=== PATIENT | female | born 1985 | race Caucasian/White ===

== ENCOUNTER 2018-07-12 13:14 | Outpatient (CLI) | payer OTHER ==
--- NOTE | 2018-07-12 15:31 | ULT ---
LEFT BREAST ULTRASOUND LIMITED: Date: 07/12/18 HISTORY: 32-year-old female presents with a palpable finding in the left breast at approximately the 2 o'clock position. FINDINGS: Ultrasound evaluation demonstrates no solid or cystic mass. No abnormal finding to account for the pa lpable finding. Prior diagnostic mammogram showed no significant abnormality in this region of the east as well. IMPRESSION: BI-RADS Category 2 - Benign findings. No mammographic or ultrasound finding to account for a palpable finding. If the patient develops any new palpable finding, ultrasound examination at that point in time should be considered. Additionally, follow-up screening mammogram should be considered to be performed betw een age 35-40, depending upon risk factors. POS: OFF
== END 2018-07-12 13:15 | disposition home or self-care (01) ==
LOC: BICMAMMO 13:14
PROVIDERS: ATTEND Clinical Nurse Specialist Medical-Surgical
DX: R92.2 Inconclusive mammogram (principal); N64.89 Other specified disorders of breast
CPT/HCPCS: 77066; G0279